=== PATIENT | female | born 1995 | race Hispanic/Latino ===

== ENCOUNTER 2019-05-28 15:17 | Emergency (ER) | payer BC ==
[~2019-05-28] VITALS: Ht 165.1 cm; Wt 68.0 kg
[2019-05-28] MEDS ORDERED: ONDANSETRON HCL INJ 2MG/ML 2ML 2 MG/ML VIAL IV STA (15:26)
[2019-05-28] MEDS ORDERED: SODIUM CHLORIDE 0.9% 1000ML 1,000 ML IV STA (15:26)
[2019-05-28] MEDS ORDERED: KETOROLAC TROMETHAMINE 30 MG/ML VIAL IV STA (15:26)
[2019-05-28] MEDS ORDERED: PANTOPRAZOLE 40 MG 10ML VIAL IV STA (15:26)
[2019-05-28] MEDS ORDERED: LIDOCAINE VISC 2% SOLN 15 ML UDC PO ONE (15:30)
[2019-05-28] MEDS ORDERED: MAGNESIUM/ALUMINUM/SIMETHICONE 30 ML UDC PO ONE (15:30)
--- NOTE | 2019-05-28 15:38 | NUR ---
client blood sent, US here to take client to radiology suite.
[2019-05-28] MEDS ORDERED: BELLADONNA ALK/PHENOBARBITAL 5 ML UDC PO SCH (15:40)
[2019-05-28 16:04] LABS: BASOPHILS # (AUTO) 0.1 (0.0-0.1); BASOPHILS % 0.3 % (0.0-1.0); EOSINOPHILS # (AUTO) 0.1 (0.0-0.4); EOSINOPHILS % 0.3 % (0.0-6.0); HEMATOCRIT 37.8 % (34.2-44.1); LYMPHOCYTES # (AUTO) 2.1 (1.0-3.2); LYMPHOCYTES % 14.6 % (18.0-39.1); MEAN CORPUSCULAR HEMOGLOBIN 31.8 pg (28-32); MEAN CORPUSCULAR HGB CONC 34.4 g/dL (31-35); MEAN CORPUSCULAR VOLUME 92.4 fL (81-99); MONOCYTES # (AUTO) 0.8 (0.2-0.8); MONOCYTES % 5.2 % (4.4-11.3); NEUTROPHILS # (AUTO) 11.5 (2.1-6.9); NEUTROPHILS % 79.1 % (38.7-80.0); PLATELET COUNT 323 x10e3/uL (140-360); RED BLOOD COUNT 4.09 x10e6/uL (3.6-5.1); RED CELL DISTRIBUTION WIDTH 12.3 % (11.7-14.4)
[2019-05-28 16:12] LABS: BILIRUBIN,URINE NEGATIVE (NEGATIVE); CLARITY,URINE CLEAR (CLEAR); COLOR,URINE YELLOW (YELLOW); KETONES,URINE NEGATIVE (NEGATIVE); LEUKOCYTE ESTERASE ,URINE NEGATIVE (NEGATIVE); NITRITE,URINE NEGATIVE (NEGATIVE); PREGNANCY TEST, URINE NEGATIVE (NEGATIVE); PROTEIN,URINE DIPSTICK NEGATIVE (NEGATIVE); URINE UROBILINOGEN 0.2 mg/dL (0.2 - 1)
--- NOTE | 2019-05-28 16:19 | Diagnostic Imaging Report ---
EXAM: US GALLBLADDER DATE: 05/28/2019 3:26 PM INDICATION: Abdominal pain COMPARISON: None FINDINGS: The liver is normal in size measuring 15.6 cm in length. Hepatic echogenicity is within normal limits. No focal hepatic abnormality is identified. The main portal vein is patent with antegrade flow and diameter of 0.9 cm, within normal limits. Two shadowing stones are identified within the gallbladder neck measuring up to 1.0 cm. Additionally, there is a nonvascular, 1.3 cm echogenic focus identified along the gallbladder wall. There is no evidence for gallbladder wall thickening or pericholecystic fluid. There is no intra or extrahepatic biliary ductal dilatation. The common bile duct measures 2 mm. Sonographic Mejia's sign is negative. The right kidney is normal in size measuring 10.4 cm in length with normal cortical thickness and echogenicity. There is no evidence for solid renal mass, hydronephrosis, or shadowing calculi within the right kidney. The visualized portions the IVC and aorta are within normal limits. There is no ascites utilized. IMPRESSION: Cholelithiasis without sonographic evidence for acute cholecystitis. Additional 1.3 cm echogenic focus identified along the gallbladder wall which is favored to represent adherent sludge/stones. A small polyp is thought to be less likely but not entirely excluded. Signed by: Dr. Ryan Alatorre MD on 05/28/2019 4:17 PM
[2019-05-28 16:23] LABS: ALANINE AMINOTRANSFERASE 7 IU/L (0-55); ALBUMIN 4.2 g/dL (3.5-5.0); ALBUMIN/GLOBULIN RATIO 1.6 (0.8-2.0); ALKALINE PHOSPHATASE 63 IU/L (40-150); AMYLASE 42 U/L (25-125); ANION GAP 15.4 mmol/L (8-16); BLOOD UREA NITROGEN 12 mg/dL (7-26); BUN/CREATININE RATIO 15 (6-25); CARBON DIOXIDE 23 mmol/L (22-29); CHLORIDE 104 mmol/L (98-107); CREATININE, SERUM 0.78 mg/dL (0.57-1.11); EST GLOMERULAR FILTRATION RATE > 60 ML/MIN (60-); GLUCOSE 87 mg/dL (74-118); LIPASE 21 U/L (8-78); POTASSIUM 4.4 mmol/L (3.5-5.1); SODIUM 138 mmol/L (136-145)
[2019-05-28 16:26] LABS: BACTERIA,URINE MODERATE /HPF; EPITHELIAL CELLS,URINE RARE /LPF; RBC,URINE 0-5 /HPF (0-5)
[2019-05-28 16:55] VITALS: BP 134/86
== END 2019-05-28 16:59 | disposition home or self-care (01) ==
LOC: ER 15:17
DX: R10.11 Right upper quadrant pain (principal); K80.70 Calculus of gallbladder and bile duct without cholecystitis without obstruction
CPT/HCPCS: 36415; 76705; 80053; 81001; 81025; 82150; 83690; 85025; 99282; J1885; J2405

== ENCOUNTER 2020-12-25 03:15 | Observation (INO) | payer BC ==
[~2020-12-25] VITALS: Ht 162.6 cm; Wt 84.4 kg
[2020-12-25] MEDS ORDERED: KETOROLAC TROMETHAMINE 30 MG/ML VIAL IV STA (03:57)
[2020-12-25] MEDS ORDERED: FAMOTIDINE 20 MG/2 ML VIAL IV STA (03:57)
[2020-12-25] MEDS ORDERED: ONDANSETRON HCL INJ 2MG/ML 2ML 2 MG/ML VIAL IV STA ×2 (03:57→05:07)
[2020-12-25] MEDS ORDERED: SODIUM CHLORIDE 0.9% 1000ML 1,000 ML IV SCH (04:00)
[2020-12-25] MEDS ORDERED: IOPAMIDOL 370 MG/ML 200 ML INFUS..BTL INJ ONE (04:29)
[2020-12-25] MEDS ORDERED: SODIUM CHLORIDE 0.9% 50ML 50 ML ONE (04:29)
[2020-12-25] MEDS ORDERED: KETOROLAC TROMETHAMINE 30 MG/ML VIAL ONE ×2 (04:31→17:12)
[2020-12-25] MEDS ORDERED: FAMOTIDINE 20 MG/2 ML VIAL IV ONE (04:31)
[2020-12-25] MEDS ORDERED: ONDANSETRON HCL INJ 2MG/ML 2ML 2 MG/ML VIAL ONE ×4 (04:31→17:12)
[2020-12-25] MEDS ORDERED: SODIUM CHLORIDE 0.9% 1000ML 1,000 ML ONE (04:31)
[2020-12-25] MEDS ORDERED: MORPHINE SULFATE INJ 4 MG/ML INJ 1ML IV STA (05:07)
[2020-12-25] MEDS ORDERED: MORPHINE SULFATE INJ 4 MG/ML INJ 1ML ONE (05:24)
[2020-12-25] MEDS ORDERED: METRONIDAZOLE 500MG/NS 100ML 100 ML IV ONE (05:57)
[2020-12-25] MEDS ORDERED: CEFEPIME HCL 1 GM VIAL ONE ×2 (05:57→14:20)
[2020-12-25] MEDS ORDERED: CEFEPIME 2 GM in SODIUM CHLORIDE 0.9% 100 ML IV SCH ×2 (06:00→06:12)
[2020-12-25] MEDS ORDERED: PIPERACILLIN/TAZOBACTAM 3.375 GM in SODIUM CHLORIDE 0.9% 50ML 50 ML IV SCH (06:00)
[2020-12-25] MEDS ORDERED: METRONIDAZOLE 500MG/NS 100ML 100 ML IV SCH ×2 (06:00→14:30)
[2020-12-25] MEDS ORDERED: PROMETHAZINE HCL (IM) 25 MG/ML VIAL IM PRN (06:00)
[2020-12-25] MEDS: SODIUM CHLORIDE 0.9% 1000ML 1,000 ML IV SCH ×4 (06:00→22:00)
[2020-12-25 08:00] VITALS: BP 136/75
[2020-12-25 09:05] VITALS: BP 136/75
[2020-12-25] MEDS: HYDROMORPHONE 1MG/1ML INJ IV PRN ×3 (10:15→21:56)
[2020-12-25] MEDS: ONDANSETRON HCL INJ 2MG/ML 2ML 2 MG/ML VIAL IV PRN ×3 (10:15→21:56)
[2020-12-25 13:01] VITALS: BP 122/77
[2020-12-25] MEDS ORDERED: CEFEPIME 1 GM in SODIUM CHLORIDE 0.9% 50ML 50 ML IV SCH (14:00)
[2020-12-25] MEDS ORDERED: BUPIVACAINE 0.25% 30ML SDV ONE (14:03)
[2020-12-25] MEDS ORDERED: FENTANYL CITRATE/PF 100MCG/2 ML INJ ONE (15:28)
[2020-12-25 16:44] VITALS: BP 118/81
[2020-12-25] MEDS: METRONIDAZOLE 500MG/NS 100ML 100 ML IV SCH (17:10)
[2020-12-25] MEDS ORDERED: PROPOFOL IV EMULSION 10 MG/ML 20 ML VIAL ONE (17:12)
[2020-12-25] MEDS ORDERED: LIDOCAINE HCL 2% LOCAL INJ 5 ML SDV VIAL INJ ONE (17:12)
[2020-12-25] MEDS ORDERED: POVIDONE IODINE 0.05% 0.05 % ML PO ONE (17:12)
[2020-12-25] MEDS ORDERED: DEXAMETHASONE SOD PHOS INJ 4 MG/ML VIAL ONE (17:12)
[2020-12-25] MEDS ORDERED: ROCURONIUM BROMIDE 10 MG/ML 5ML VIAL IV ONE (17:12)
[2020-12-25] MEDS ORDERED: SEVOFLURANE INHAL SOLN 250 ML PEN BTL ONE (17:12)
[2020-12-25 20:00] VITALS: BP 128/74
[2020-12-25] MEDS: CEFEPIME 1 GM in SODIUM CHLORIDE 0.9% 50ML 50 ML IV SCH (21:50)
[2020-12-26] VITALS: BP 121/75
[2020-12-26] MEDS: SODIUM CHLORIDE 0.9% 1000ML 1,000 ML IV SCH ×4 (00:03→14:00)
[2020-12-26] MEDS: METRONIDAZOLE 500MG/NS 100ML 100 ML IV SCH ×3 (00:38→16:40)
[2020-12-26] MEDS: ONDANSETRON HCL INJ 2MG/ML 2ML 2 MG/ML VIAL IV PRN ×2 (02:39→06:46)
[2020-12-26] MEDS: HYDROMORPHONE 1MG/1ML INJ IV PRN ×4 (02:39→16:41)
[2020-12-26 04:00] VITALS: BP 109/65
[2020-12-26] MEDS: CEFEPIME 1 GM in SODIUM CHLORIDE 0.9% 50ML 50 ML IV SCH ×2 (05:33→15:22)
[2020-12-26 08:12] VITALS: BP 117/65
[2020-12-26] MEDS: HYDROCODONE/APAP 5MG-325MG TAB PO PRN ×3 (08:31→18:12)
[2020-12-26 08:39] VITALS: BP 117/65
[2020-12-26 11:16] VITALS: BP 122/75
[2020-12-26] MEDS ORDERED: ACETAMINOPHEN/1 EAC1 PO (14:09)
== END 2020-12-26 18:30 | disposition home or self-care (01) ==
LOC: FSED 03:32 → ERHOLD 05:56 → MED/SURG 08:46
PROVIDERS: ADMIT Family Medicine; ATTEND Family Medicine
DX: K80.12 Calculus of gallbladder with acute and chronic cholecystitis without obstruction (principal); Z88.0 Allergy status to penicillin; E66.9 Obesity, unspecified; Z83.3 Family history of diabetes mellitus; Z82.49 Family history of ischemic heart disease and other diseases of the circulatory system; Z84.1 Family history of disorders of kidney and ureter; K80.00 Calculus of gallbladder with acute cholecystitis without obstruction; Z68.31 Body mass index [BMI] 31.0-31.9, adult; Z20.822 Contact with and (suspected) exposure to COVID-19
CPT/HCPCS: 47562; 74177; 80048; 80076; 81003; 81025; 85025; 88304; 99284; G0378 ×2; J0692 ×2; J1100; J1170 ×2; J1885; J2001; J2270; J2405 ×2; J2704; J3010; J7030 ×2; Q9967; U0002